=== PATIENT | female | born 1965 | race Caucasian/White ===

== ENCOUNTER → 2016-08-06 | Outpatient (CLI) | payer BC | LOC: FIMAGING 07:52 | PROVIDERS: ATTEND Family Medicine | DX: Z12.31 Encounter for screening mammogram for malignant neoplasm of breast (principal); Z80.3 Family history of malignant neoplasm of breast | CPT/HCPCS: G0202 ==

== ENCOUNTER → 2016-08-18 | Outpatient (CLI) | payer BC | LOC: FIMAGING 13:39 | PROVIDERS: ATTEND Family Medicine | DX: R92.8 Other abnormal and inconclusive findings on diagnostic imaging of breast (principal) | CPT/HCPCS: G0206 ==

== ENCOUNTER → 2016-09-02 | Outpatient (CLI) | payer BC ==
[~2016-09-02] MED LIST: GADOBUTROL 10 ML VIAL IVP ONE
== END ==
LOC: FIMAGING 07:14
PROVIDERS: ATTEND Family Medicine
DX: R92.8 Other abnormal and inconclusive findings on diagnostic imaging of breast (principal); R59.0 Localized enlarged lymph nodes
CPT/HCPCS: 0159T; 77059; A9585; C8908

== ENCOUNTER 2016-09-10 10:03 | Outpatient (CLI) | payer BC ==
[2016-09-10] MEDS ORDERED: GADOBUTROL 10 ML VIAL IVP ONE (10:52)
[2016-09-10] MEDS ORDERED: NA BICARBONATE 50 MEQ/50 ML VIAL ONE (11:07)
[2016-09-10] MEDS ORDERED: LIDOCAINE 1% 5 ML SDV ONE (11:07)
[2016-09-10] MEDS ORDERED: BUPIVACAINE 0.5% 30 ML SDV ONE (11:07)
[2016-09-10] MEDS ORDERED: fentaNYL 100 MCG/2 ML INJ ONE (11:24)
== END 2016-09-10 13:10 | disposition home or self-care (01) ==
LOC: FIMAGING 10:03
PROVIDERS: ATTEND Surgery
PROC: 0HBT3ZX Excision of Right Breast, Percutaneous Approach, Diagnostic (ICD-10-PCS; principal; 2016-09-10)
DX: D05.11 Intraductal carcinoma in situ of right breast (principal)
CPT/HCPCS: A9585; J3010

== ENCOUNTER 2016-10-06 07:16 | Observation (INO) | payer BC ==
--- NOTE | 2016-10-05 18:33 | GHP ---
[f rep st] HISTORY AND PHYSICAL DATE OF ADMISSION: 10/06/2016 CHIEF COMPLAINT: Right breast DCIS. HISTORY OF PRESENT ILLNESS: The patient is a 51-year-old female, who is following up her recent diagnosis of right breast DCIS, who was diagnosed with an MRI-guided right breast core needle biopsy. 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 She does have a positive family history as her mother from breast cancer. She is premenopausal. PAST MEDICAL HISTORY: Ductal carcinoma in situ of the right breast, headache, infertility, migraine, sleep apnea; unspecified. PAST SURGICAL HISTORY: No past surgeries. MEDICATIONS: Naratriptan and zolmitriptan. ALLERGIES: No known drug allergies. SOCIAL HISTORY: No tobacco use. REVIEW OF SYSTEMS: A 10-point review of systems negative except for as noted above in HPI. PHYSICAL EXAMINATION: GENERAL: Well groomed, pleasant, nontoxic-appearing female. SKIN: Warm and dry. HEENT: Normocephalic. Pupils are equal and round. EXTREMITIES: Adequate peripheral perfusion. MUSCULOSKELETAL: Ambulates well independently, normal gait. NEUROLOGIC: Alert and oriented x4. PSYCHIATRIC: Mood and affect were normal. ASSESSMENT: Ductal carcinoma in situ of the right breast. PLAN: I advised the patient that her mass is reported in situ, but it is a very extensive mass. It does not present a good candidacy for a lumpectomy. I explained that I would recommend that she undergo a right mastectomy, probably with removal of the nipple. We also briefly discussed the option for breast reconstruction. She understands that adjuvant therapy treatment recommendations will depend on the pathology results from her surgery. I further recommended that she have testing for the BRCA genes as this may inform a decision leading towards a double mastectomy. She admitted to me that she had been considering double mastectomy. Discussed the general course of mastectomy, and why I would not recommend just a lumpectomy in her case. We then discussed the usual course of recovery, and the associated risks including bleeding, infection, the need of axillary lymph node dissection, and the chances that she will need chemotherapy, radiation, or both. She understood all the above and I answered all of questions, risks and signs of infection. She wishes to wait to talk with an oncologist, but will work with our surgical schedule to plan the procedure. /[id number]/MODL MTDD
[2016-10-06] MEDS ORDERED: LIDOCAINE 1% 2 ML INJ ID PRN (07:41)
[2016-10-06] MEDS ORDERED: LR 1,000 ML IV ONE (07:41)
[2016-10-06] MEDS ORDERED: ceFAZolin 2 GM/DEXTROSE 100 ML IV ONE (07:41)
[2016-10-06] MEDS ORDERED: THROMBIN (BOVINE) 20,000 UNIT SPRAY TP ONE (08:57)
[2016-10-06] MEDS ORDERED: BUPIVACAINE 0.5% 30 ML SDV ONE (08:58)
[2016-10-06] MEDS ORDERED: MIDAZOLAM 2 MG/2 ML VIAL IVP ONE (10:54)
[2016-10-06] MEDS ORDERED: fentaNYL 100 MCG/2 ML INJ IVP PRN (10:55)
[2016-10-06] MEDS ORDERED: ALBUTEROL 3 ML DEYVIAL IH PRN (10:55)
[2016-10-06] MEDS ORDERED: ACETAMINOPHEN 500 MG TAB PO PRN (10:55)
[2016-10-06] MEDS ORDERED: ONDANSETRON 4 MG/2 ML VIAL IVP PRN ×2 (10:55→13:30)
[2016-10-06] MEDS ORDERED: NALOXONE HCL 0.4 MG/ML INJ IVP PRN (10:55)
--- NOTE | 2016-10-06 10:56 | PDANEPAE ---
ANE History of Present Illness B Mastectomy ANE Past Medical History - Cardiovascular History Hx Hypertension: No Hx Arrhythmias: No Hx Chest Pain: No Hx Coronary Artery / Peripheral Vascular Disease: No Hx CHF / Valvular Disease: No Hx Palpitations: No - Pulmonary History Hx COPD: No Hx Asthma/Reactive Airway Disease: No Hx Recent Upper Respiratory Infection: No Hx Oxygen in Use at Home: No Hx Sleep Apnea: No - Neurologic History Hx Cerebrovascular Accident: No Hx Seizures: No Hx Dementia: No - Endocrine History Hx Diabetes: No - Renal History Hx Renal Disorders: No - Liver History Hx Hepatic Disorders: No - Neurological & Psychiatric Hx Hx Neurological and Psychiatric Disorders: No - Cancer History Hx Cancer: No - Congenital Disorder History Hx Congenital Disorders: No - GI History Hx Gastrointestinal Disorders: No - Chronic Pain History Chronic Pain: No - Surgical History Prior Surgeries: None ANE Review of Systems Review of systems is: negative - Exercise capacity METS (RN): 4 METS ANE Patient History - Allergies Allergies/Adverse Reactions: No Allergies [NKA] Allergy (Verified 09/04/16 15:11) - Home Medications Home Medications: Naratriptan HCl [Amerge] 2.5 - 5 mg PO DAILY PRN 10/05/16 [Last Taken 10/05/16 22:00] - NPO status NPO Since - Liquids (Date): 10/06/16 NPO Since - Liquids (Time): 05:30 NPO Since - Solids (Date): 10/05/16 NPO Since - Solids (Time): 18:30 - Smoking Hx Smoking Status: Never smoked - Family Anes Hx Family Hx Anesthesia Complications: None ANE Labs/Vital Signs - Vital Signs Blood Pressure: 131/86 Heart Rate: 68 Respiratory Rate: 18 O2 Sat (%): 97 Height: 165.1 cm Weight: 63.503 kg ANE Physical Exam - Airway Neck exam: FROM Mallampati Score: Class 2 - Pulmonary Pulmonary: clear to auscultation - Cardiovascular Cardiovascular: regular rate and rhythym - ASA Status ASA Status: II ANE Anesthesia Plan Anesthesia Plan: GA w LMA
[2016-10-06] MEDS ORDERED: PROPOFOL 200 MG/20 ML VIAL ONE (11:07)
[2016-10-06] MEDS ORDERED: MIDAZOLAM 2 MG/2 ML VIAL ONE (11:07)
[2016-10-06] MEDS ORDERED: fentaNYL 100 MCG/2 ML INJ ONE ×2 (11:07→11:40)
[2016-10-06] MEDS ORDERED: LIDOCAINE 2% 5 ML SDV ONE (11:08)
[2016-10-06] MEDS ORDERED: DEXAMETHASONE 4 MG/ML VIAL ONE (11:09)
[2016-10-06] MEDS ORDERED: METOCLOPRAMIDE 10 MG/2 ML VIAL ONE (11:09)
[2016-10-06] MEDS ORDERED: ONDANSETRON 4 MG/2 ML VIAL ONE (11:09)
--- NOTE | 2016-10-06 13:08 | POSTANESTH ---
Post Anesthetic Evaluation Cardiovascular Status: Normal, Stable Respiratory Status: Normal, Stable Level of Consciousness/Mental Status: Can Participate in Eval, Mildly Sleepy, Arousable Pain Control: Adequate, Prn Tx Ordered Nausea/Vomiting Control: Adequate, Prn Tx Ordered Complications Possibly Related to Anesthesia: None Noted
--- NOTE | 2016-10-06 13:28 | POSTOPPROG ---
Post Op Note Date of Operation: 10/06/16 Surgeon: Tino Alcocer Support Group Manager: ketty Anesthesiologist: shanna Anesthesia: GET(General Endotracheal) Pre-op Diagnosis: rt breast DCIS Post-op Diagnosis: same, path pending Indication: extensive disease right breast Procedure: bilat mastectomies with SN bxs Findings: - sn bxs Inf/Abcess present in the surg proc area at time of surgery?: No Depth: Deep Incisional (Fascial) EBL: 50-100 Complications: 0 Drains: Korey Graham Specimen(s): bilateral breasts and bilat sentinel nodes
[2016-10-06] MEDS ORDERED: D5W 1/2 NS W/ 20 KCl/L 1,000 ML IV SCH (13:30)
[2016-10-06] MEDS ORDERED: HYDROmorphONE/DILAUDID 1 MG/ML SYR IVP PRN (13:30)
[2016-10-06] MEDS ORDERED: OXYCODONE/APAP 5/325 TAB PO PRN (13:30)
[2016-10-06 14:16] VITALS: RESP 16
[2016-10-06] MEDS: KETOROLAC 15 MG/1 ML SDV IVP SCH (18:07)
[2016-10-07] MEDS: KETOROLAC 15 MG/1 ML SDV IVP SCH ×2 (00:13→06:08)
[2016-10-07 05:18] VITALS: PULSE 69; O2SAT 96
[2016-10-07 05:30] LABS: % IMMATURE GRANULYOCYTES 0.6 % (0.0-1.1); ABSOLUTE IMMATURE GRANULOCYTES 0.07 10^3/uL (0.00-0.10); ADD DIFF? NO; ADD MORPH? NO; ADD SCAN? NO; ATYPICAL LYMPHOCYTE FLAG 0 (0-99); FRAGMENT RBC FLAG 20 (0-99); HEMATOCRIT 36.8 % (38.0-47.0); HEMOGLOBIN 12.7 g/dL (12.6-16.3); LEFT SHIFT FLG 0 (0-99); LIPEMIA HEMOLYSIS FLAG 90 (0-99); MEAN CELL HEMOGLOBIN 31.7 pg (27.9-34.1); MEAN CELL HEMOGLOBIN CONCENTR. 34.5 g/dL (32.4-36.7); MEAN CELL VOLUME 91.8 fL (81.5-99.8); MEAN PLATELET VOLUME 12.7 fL (8.7-11.7); PLATELET CLUMPS FLAG 20 (0-99); PLATELET COUNT 167 10^3/uL (150-400); RED BLOOD CELL COUNT 4.01 10^6/uL (4.18-5.33); RED CELL DISTRIBUTION WIDTH 12.9 % (11.5-15.2)
[2016-10-07 09:02] VITALS: BP 148/76; TEMP 97.8
--- NOTE | 2016-10-07 10:56 | SOAPPROG ---
SOAP Progress Note Assessment/Plan: Assessment: 51yo female POD#1 s/p bilateral mastectomies with SNL biopsy. Recovering well. Pathology pending. Continue GEM drains and monitor output Continue pain control Dispo: to home today if feeling ready with follow up this weekend with Yuridia Foster or Wednesday in office for GEM drain removal S: Patient c/o migraine. Denies surgical pain, F/C/N/V. O: Patient sitting up in bed in dark room NAD No increased WOB Minimal but appropriate swelling of bilateral breasts Dressings intact GEM drains with serosang drainage Objective: Vital Signs Temp Pulse Resp BP Pulse Ox 36.6 C 69 16 148/76 H 96 10/07/16 09:01 10/07/16 09:01 10/07/16 09:01 10/07/16 09:01 10/07/16 09:01 Laboratory Results 10/07/16 05:20 10/06/16 10/07/16 10/08/16 05:59 05:59 05:59 Intake Total 900 999 Output Total 1684 Balance -784 999 ICD10 Worksheet Patient Problems: Problems Problem Status Onset Breast cancer Acute - ICD10 Problem Qualifiers (1) Breast cancer Qualifiers: Breast location: B Estrogen receptor status: E Patient sex: P Laterality: L
--- NOTE | 2016-10-07 11:15 | SOAPPROG ---
SOAP Progress Note Assessment/Plan: Assessment: status post double mastectomy doing well / minimal drainage / complaint headache but no surgical pain / hematocrit stable / possibly home today Plan: possibly home today 10/07/16 11:02 Objective: Vital Signs Temp Pulse Resp BP Pulse Ox 36.6 C 69 16 148/76 H 96 10/07/16 09:01 10/07/16 09:01 10/07/16 09:01 10/07/16 09:01 10/07/16 09:01 Laboratory Results 10/07/16 05:20 10/06/16 10/07/16 10/08/16 05:59 05:59 05:59 Intake Total 900 999 Output Total 1684 Balance -784 999 ICD10 Worksheet Patient Problems: Problems Problem Status Onset Breast cancer Acute
[2016-10-14 12:27] LABS: ACCESSION # HR17-41890; INTERPRETATION See Comments
== END 2016-10-07 11:47 | disposition home or self-care (01) ==
LOC: F3E 07:16 → F1N 11:07
PROVIDERS: ADMIT Surgery; ATTEND Surgery
DX: C50.811 Malignant neoplasm of overlapping sites of right female breast (principal); Z17.0 Estrogen receptor positive status [ER+]
CPT/HCPCS: 19303; 38525; 78195; A9520; G0378; J0690; J1100; J1885; J2250; J2405; J2704; J2765; J3010

== ENCOUNTER → 2017-02-02 | Outpatient (CLI) | payer BC | LOC: FIMAGING 09:34 | PROVIDERS: ATTEND Internal Medicine Hematology & Oncology | DX: Z13.820 Encounter for screening for osteoporosis (principal); M85.89 Other specified disorders of bone density and structure, multiple sites ==